=== PATIENT | male | born 1955 | race African-American/Black ===

== ENCOUNTER → 2020-04-20 | Day surgery (SDC) | payer BC, OTHER ==
[2020-04-18 09:38] VITALS: BMI 32.1
[~2020-04-20] MED LIST: LACTATED RINGERS 1,000 ML IV SCH; LIDOCAINE 1% INJ 10MG/ML (20 ML MDV) ONE; PROPOFOL 10 MG/ML 20 ML VIAL IV ONE
[2020-04-20 08:22] VITALS: TEMP 97.7
--- NOTE | 2020-04-20 08:45 | P.GSHP ---
History of Present Illness H&P Date: 04/20/20 CHIEF COMPLAINT: Colon screen HISTORY OF PRESENT ILLNESS: The patient is a 64-year-old male who presents for colon screen. Lower endoscopy was offered for further evaluation and management. PAST MEDICAL HISTORY: Please see list. PAST SURGICAL HISTORY: Please see list. MEDICATIONS: Please see list. ALLERGIES: Please see list. SOCIAL HISTORY: No illicit drug use FAMILY HISTORY: No reports of Crohn disease or ulcerative colitis. REVIEW OF ORGAN SYSTEMS: CONSTITUTIONAL: No reports of fevers or chills. PHYSICAL EXAM: VITAL SIGNS: Stable GENERAL: Well-developed pleasant in no acute distress. HEENT: No scleral icterus. Extraocular movements grossly intact. Moist buccal mucosa. NECK: Supple without lymphadenopathy. CHEST: Unlabored respirations. Equal bilateral excursions. CARDIOVASCULAR: Regular rate and rhythm. Distal 2+ pulses. ABDOMEN: Soft, nontender, nondistended. MUSCULOSKELETAL: No clubbing, cyanosis, or edema. ASSESSMENT: 1. Colon screen. PLAN: 1. Recommend proceeding with a lower endoscopy Past Medical History Past Medical History: Hypertension Additional Past Medical History / Comment(s): intentional wt loss approx 50lbs- off cholesterol medication and stated Dr Vazquez possibly taking HTN RX off soon,hx polyps History of Any Multi-Drug Resistant Organisms: None Reported Additional Past Surgical History / Comment(s): colonscopy Past Anesthesia/Blood Transfusion Reactions: No Reported Reaction Smoking Status: Former smoker - Past Family History Mother Family Medical History: Cancer Medications and Allergies Home Medications Medication Instructions Recorded Confirmed Type Fish Oil/Dha/Epa [Fish Oil 1,200 1 each PO DAILY 04/18/20 04/20/20 History mg Fish Oil] Tamsulosin HCl [Flomax] 0.4 mg PO HS 04/18/20 04/20/20 History Trandolapril/Verapamil HCl [Tarka 1 each PO QAM 04/18/20 04/20/20 History ER 2-240 mg Tablet] Allergies Allergy/AdvReac Type Severity Reaction Status Date / Time No Known Allergies Allergy Verified 04/20/20 08:11 Surgical - Exam Vital Signs Temp Pulse Resp BP Pulse Ox 97.7 F 83 17 140/73 98 04/20/20 08:21 04/20/20 08:21 04/20/20 08:21 04/20/20 08:21 04/20/20 08:21
--- NOTE | 2020-04-20 09:38 | P.PCN ---
Date of Procedure: 04/20/20 Description of Procedure: PREOPERATIVE DIAGNOSIS: Personal history of colon polyps High-risk colon screening POSTOPERATIVE DIAGNOSIS: Personal history of colon polyps High-risk colon screening OPERATION: Colonoscopy to the ascending colon/cecum SURGEON: Lainey Karimi MD. ANESTHESIA: MAC. INDICATIONS: The patient is a 64-year-old male who presents with personal history of high risk colon polyps. Last colonoscopy 2 years, 2018. Benefits and risks were described and informed consent was obtained. DESCRIPTION OF PROCEDURE: The patient had undergone Gatorade, MiraLAX and Dulcolax prep. He had been brought into the operating room and laid in the left lateral decubitus position. After adequate intravenous sedation, the rectum was examined with 2% lidocaine jelly. No external hemorrhoids were encountered. The rectal tone was within normal limits. No lesions were palpated in the rectal vault. The prostate fossa was unremarkable. An Olympus colonoscope was advanced to a highly redundant colon to the ascending colon with brief capture of the cecum. The prep was good. No large mouth diverticulosis was found. No large colonic polyps were found. No evidence of focal colitis was found. Retroflexion of the scope demonstrated grade 1 internal hemorrhoids without active bleeding or infl ammation. The colon was desufflated. The patient had tolerated the procedure well. Withdrawal time was over 6 minutes. FINDINGS: Aronchick preparation quality scale 2 (1-5) Internal hemorrhoids, grade 1 No external prolapsed hemorrhoids. No arteriovenous malformations. No adenomatous polyps. No focal colitis. RECOMMENDATIONS: Lower endoscopy in 5 years, 2024 Plan - Discharge Summary Discharge Rx Participant: No New Discharge Prescriptions: Continue Trandolapril/Verapamil HCl [Tarka ER 2-240 mg Tablet] 1 each PO QAM Tamsulosin HCl [Flomax] 0.4 mg PO HS Fish Oil/Dha/Epa [Fish Oil 1,200 mg Fish Oil] 1 each PO DAILY Discharge Medication List Fish Oil/Dha/Epa [Fish Oil 1,200 mg Fish Oil] 1 each PO DAILY 04/18/20 [History] Tamsulosin HCl [Flomax] 0.4 mg PO HS 04/18/20 [History] Trandolapril/Verapamil HCl [Tarka ER 2-240 mg Tablet] 1 each PO QAM 04/18/20 [History] Follow up Appointment(s)/Referral(s): Lainey Karimi MD [STAFF PHYSICIAN] - As Needed Patient Instructions/Handouts: Colonoscopy (DC), *Surgery [facility] - (Anesthesia) Endoscopy Discharge Instructions Activity/Diet/Wound Care/Special Instructions: Repeat colonoscopy in 5 years, 2024 Discharge Disposition: HOME SELF-CARE
[2020-04-20 09:48] VITALS: BP 103/67; PULSE 68; RESP 16
== END | disposition home or self-care (01) ==
LOC: ORWHC2ENDO 08:00
PROVIDERS: ATTEND Surgery Plastic and Reconstructive Surgery
DX: Z12.11 Encounter for screening for malignant neoplasm of colon (principal); K64.0 First degree hemorrhoids; I10 Essential (primary) hypertension; N40.0 Benign prostatic hyperplasia without lower urinary tract symptoms; Z86.010 Personal history of colon polyps; Z87.891 Personal history of nicotine dependence; Z80.9 Family history of malignant neoplasm, unspecified; Z79.899 Other long term (current) drug therapy
CPT/HCPCS: G0105; J2001; J2704; 45378

== ENCOUNTER → 2021-07-04 | Outpatient (CLI) | payer BC, MEDICARE | END | disposition home or self-care (01) | LOC: LABPAT 11:59 | PROVIDERS: ATTEND Urology | DX: Z01.812 Encounter for preprocedural laboratory examination (principal); C61 Malignant neoplasm of prostate | CPT/HCPCS: 80048; 84153; 85025; 86850; 86900; 86901 ==

== ENCOUNTER 2021-07-12 10:06 | Day surgery (SDC) | payer BC, MEDICARE ==
[2021-07-04 13:07] LABS: Basophils % (A) 1 %; Eosinophils # (A) 0.1 k/uL (0-0.7); Eosinophils % (A) 2 %; HCT 44.7 % (39.0-53.0); Lymphocytes # (A) 1.8 k/uL (1.0-4.8); Lymphocytes % (A) 32 %; MCH 29.6 pg (25.0-35.0); MCHC 31.5 g/dL (31.0-37.0); Mean Platelet Volume 7.5; Monocytes # (A) 0.3 k/uL (0-1.0); Monocytes % (A) 5 %; Neutrophils # (A) 3.4 k/uL (1.3-7.7); Neutrophils % (A) 60 %; Platelet Count 289 k/uL (150-450); RBC 4.75 m/uL (4.30-5.90); RDW 13.5 % (11.5-15.5); WBC 5.7 k/uL (3.8-10.6)
[2021-07-04 13:21] LABS: African American GFR (CKD) >90 (>60 ml/min/1.73 sqM); Anion Gap 7 mmol/L; Blood Urea Nitrogen 16 mg/dL (9-20); Calcium 9.4 mg/dL (8.4-10.2); Carbon Dioxide 24 mmol/L (22-30); Chloride 106 mmol/L (98-107); Glucose 108 mg/dL (74-99); Non-African American GFR(CKD) >90 (>60 ml/min/1.73 sqM); Sodium 137 mmol/L (137-145)
[2021-07-10 12:03] VITALS: BMI 33.5
--- NOTE | 2021-07-11 06:59 | P.GSHP ---
History of Present Illness H&P Date: 07/11/21 Chief Complaint: Prostate cancer the patient is a 65-year-old -[place] male with a history of BPH. His PSA level benedicto to 5.0 in December 2020. In March, he underwent a prostate ultrasound with biopsies. The prostate volume was 66.5 mL. 1 of 12 biopsies showed Priscilla 7 (3+4) adenocarcinoma in the right mid gland. Alternative treatment options were reviewed in detail with the patient and his . These include active surveillance, robotic-assisted laparoscopic prostatectomy (RALP), and IMRT. In view of his obstructive voiding symptoms and the fact that he emp ties his bladder incompletely, he has elected to undergo a nerve sparing RALP. - Constitutional Constitutional: Denies chills, Denies fever - Cardiovascular Cardiovascular: Reports high blood pressure - Genitourinary (Male) Genitourinary: Reports urinary frequency Past Medical History Past Medical History: Cancer, Hypertension Additional Past Medical History / Comment(s): colon polyps, prostate cancer. History of Any Multi-Drug Resistant Organisms: None Reported Additional Past Surgical History / Comment(s): colonscopy, ganglion cyst Past Anesthesia/Blood Transfusion Reactions: No Reported Reaction Past Psychological History: No Psychological Hx Reported Smoking Status: Former smoker Past Alcohol Use History: None Reported Additional Past Alcohol Use History / Comment(s): quit smoking 1994,smoked approx 15 yrs <1ppd Past Drug Use History: None Reported - Past Family History Mother Family Medical History: Cancer Additional Family Medical History / Comment(s): unknown type of cancer Medications and Allergies Home Medications Medication Instructions Recorded Confirmed Type Fish Oil/Dha/Epa [Fish Oil 1,200 1 each PO DAILY 04/18/20 07/10/21 History mg Fish Oil] Tamsulosin HCl [Flomax] 0.8 mg PO HS 04/18/20 07/10/21 History Trandolapril/Verapamil HCl [Tarka 1 each PO QAM 04/18/20 07/10/21 History ER 2-240 mg Tablet] Sildenafil (Unknown Dose) 1 tab PO DIRECTED 07/10/21 History Vitamin D3 (Unknown Dose) 1 cap PO DAILY 07/10/21 History Allergies Allergy/AdvReac Type Severity Reaction Status Date / Time No Known Allergies Allergy Verified 07/10/21 11:26 Surgical - Exam - General well developed, well nourished, no distress - Neck no masses, trachea midline - Respiratory normal respiratory effort, clear to auscultation - Cardiovascular Rhythm: regular Abnormal Heart Sounds: no systolic murmur, no diastolic murmur, no rub, no S3 Gallop, no S4 Gallop, no click, no other - Abdomen Abdomen: soft, non tender, no guarding, no rigid, no rebound - Genitourinary normal penis with no external lesions, testicles non-tender - Rectum Rectum: normal sphincter tone, no masses, other (prostate enlargement, focal firmness right apex) - Psychiatric oriented to time, oriented to person, oriented to place, speech is normal, memory intact Results - Labs 07/04/21 12:47 07/04/21 12:47 Assessment and Plan (1) Malignant neoplasm of prostate Status: Acute Code(s): C61 - MALIGNANT NEOPLASM OF PROSTATE SNOMED Code(s): 540873407 Plan: robotic-assisted laparoscopic prostatectomy (RALP). The procedure has been reviewed in great detail with the patient and his . The anticipated perioperative course has been reviewed. Potential risks have been explained, which include anesthesia, bleeding, infection, vascular injury, bowel injury, urinary leak, and vesical neck contracture. They understand the possibility of erectile dysfunction despite preservation of the neurovascular bundles. They are aware of the likelihood of urinary incontinence postoperatively, and the fact that it may fail to resolve. The possible need for adjuvant therapy has also been discussed.
[~2021-07-12 10:06] MED LIST changes: +HEPARIN SODIUM,PORCINE/PF 5,000 UNIT/0.5 ML SYRINGE SQ PRN; -LACTATED RINGERS 1,000 ML IV SCH; +LIDOCAINE 1% (10MG/ML) FOR IV START INTRADERMA PRN; -LIDOCAINE 1% INJ 10MG/ML (20 ML MDV) ONE; -PROPOFOL 10 MG/ML 20 ML VIAL IV ONE
[2021-07-12] MEDS: LACTATED RINGERS 1,000 ML IV SCH (11:09)
[2021-07-12] MEDS ORDERED: LACTATED RINGERS 1,000 ML IV ONE ×2 (11:09→16:24)
[2021-07-12] MEDS ORDERED: ONDANSETRON 4 MG/2 ML VIAL ONE (11:11)
[2021-07-12] MEDS ORDERED: DEXAMETHASONE SOD PHOSPHATE 4 MG/ML 1 ML VIAL IVP ONE (11:20)
[2021-07-12] MEDS ORDERED: ONDANSETRON 4 MG/2 ML VIAL IVP ONE (11:20)
[2021-07-12] MEDS ORDERED: MIDAZOLAM 2 MG/2 ML VIAL IVP ONE (11:56)
[2021-07-12] MEDS ORDERED: ROPIVACAINE 5 MG/ML 30 ML VIAL ONE (12:11)
[2021-07-12] MEDS ORDERED: LIDOCAINE 1% INJ 10MG/ML (20 ML MDV) ONE (12:11)
[2021-07-12] MEDS ORDERED: SODIUM CHLORIDE 0.9% (PF) 10 ML VIAL ONE (12:11)
[2021-07-12] MEDS ORDERED: HYDROmorphone (PF) 1 MG/ML ONE (12:11)
[2021-07-12] MEDS ORDERED: NEOSTIGMINE 1 MG/ML 10 ML VIAL ONE (12:11)
[2021-07-12] MEDS ORDERED: MIDAZOLAM 2 MG/2 ML VIAL ONE (12:11)
[2021-07-12] MEDS ORDERED: SUCCINYLCHOLINE CHLORIDE 100 MG/5 ML SYR IV ONE (12:11)
[2021-07-12] MEDS ORDERED: ROCURONIUM 10 MG/ML (5 ML VIAL) IV ONE (12:11)
[2021-07-12] MEDS ORDERED: PROPOFOL 10 MG/ML 20 ML VIAL IV ONE (12:11)
[2021-07-12] MEDS ORDERED: fentaNYL (PF) 50 MCG/ML 2 ML AMP ONE (12:11)
[2021-07-12] MEDS ORDERED: DEXAMETHASONE SOD PHOSPHATE 4 MG/ML 1 ML VIAL ONE (12:11)
[2021-07-12] MEDS ORDERED: GLYCOPYRROLATE 0.2 MG/ML 2 ML VIAL ONE (12:11)
[2021-07-12] MEDS ORDERED: BUPIVACAINE (PF) 0.25% 30 ML VIAL SQ ONE ×2 (12:50)
[2021-07-12] MEDS ORDERED: MAG HYDROX/AL HYDROX/SIMETH 30 ML CUP PO PRN (16:41)
[2021-07-12] MEDS ORDERED: KETOROLAC 15 MG/ML 1 ML VIAL IVP PRN (16:41)
[2021-07-12] MEDS ORDERED: ONDANSETRON 4 MG/2 ML VIAL IVP PRN (16:41)
[2021-07-12] MEDS ORDERED: HYDROmorphone 1 MG/ML 1 ML SYRINGE IVP PRN (16:41)
--- NOTE | 2021-07-12 16:41 | P.OP ---
Date of Procedure: 07/12/21 Preoperative Diagnosis: Adenocarcinoma of the prostate Postoperative Diagnosis: Same Procedure(s) Performed: Robotic-assisted laparoscopic prostatectomy (RALP) Anesthesia: STEVE Surgeon: Param Schaeffer Estimated Blood Loss (ml): 150 IV fluids (ml): 900 Pathology: other (Prostate, seminal vesicles, preprostatic fat) Condition: stable Disposition: PACU Indications for Procedure: The patient is a 65-year-old -[place] male with a history of BPH. His PSA level benedicto to 5.0 in December 2020. In March, he underwent a prostate ultrasound with biopsies. The prostate volume was 66.5 mL. 1 of 12 biopsies showed Priscilla 7 (3+4) adenocarcinoma in the right mid gland. Alternative treatment options were reviewed in detail with the patient and his . These include active surveillance, robotic-assisted laparoscopic prostatectomy (RALP), and IMRT. In view of his obstructive voiding symptoms and the fact that he empties his bladder incompletely, he has elected to undergo a nerve-sparing RALP. Operative Findings: No evidence of extraprostatic disease. Description of Procedure: The patient was taken in the operating room and placed in the dorsal lithotomy position, with his legs supported in Aamir stirrups. He was carefully positioned on a beanbag for stability. The abdomen and external genitalia were prepped and draped sterilely. A Priest catheter was inserted. The Veress needle was passed through the anterior abdominal wall immediately cephalad to the umbilicus, and insufflation was performed to a pressure of 20 mm Hg. Once insufflation was performed, the Veress needle was removed and a supraumbilical incision was made, through which an 8 mm camera port was placed. Under camera guidance, 3 8 mm robotic ports were placed, 2 on the left and one on the right. A 12 mm port was placed on the right lateral side for use as an child welfare assistant port. A 5 mm port was placed to the right of the camera port for suction. The patient was placed in Trendelenburg position, and docking was then performed to the da Yariel system utilizing a 4-arm approach. The abdomen was examined. The peritoneum was incised lateral to the medial umbilical ligaments bilaterally, exposing the pubis. The peritoneum was then incised across the midline, allowing the bladder flap to be taken down. The endopelvic fascia was opened bilaterally, and muscular attachments from the urogenital diaphragm were swept away from the prostate. The vesical neck was incised transversely, down to the lumen. The Priest catheter was brought out through the anterior vesical neck incision and was used for traction. The posterior aspect of the vesical neck was incised, and there appeared to be a prostatic median lobe noted at this time. Dissection was continued posteriorly, dissecting the vesical neck off of the prostate, down to the anterior layer of Denonvilliers fascia. The anterior layer of the Denonvilliers fascia was incised, exposing the vas deferens. Each were isolated and divided. Next, each of the seminal vesicles were dissected away from adjacent tissues, and vascular attachments were cauterized and divided. The posterior leaf of Denonvilliers fascia was incised transversely, allowing entry into the plane between the prostate and rectum. With lateral spreading, this plane was developed down to the apex. This exposed the lateral vascular pedicles bilaterally. These were clipped and divided in an antegrade fashion, down to the apex, immediately adjacent to the prostate to preserve the neurovascular bundles bilaterally. The use of electrocautery was avoided to prevent thermal damage to the nerves. The remaining apical attachments were swept away from the prostate. The dorsal venous complex was incised, as well as periurethral tissue. At this point, only the urethra remained intact. This was transected immediately distal to the prostatic apex using cold scissors. The specimen was placed within a specimen bag. The dorsal venous complex was sutured using a V-Loc suture in a running fashion. The suture was passed through the periosteum of the pubis periurethral support. A second V-Loc suture was then used to place the Dwaine stitch, incorporating the rhabdosphincter and the edge of Denonvilliers fascia. This allowed the bladder to be taken down to the urethra, leaving the vesical neck immediately adjacent to the urethra. The vesicourethral anastomosis was then performed using a V-Loc suture in a running fashion. After completing the anastomosis, an 18-Grenadian Priest catheter was placed and approximately 150 mL of 0.9 normal saline were instilled into the bladder. No extravasation of irrigant from the vesicourethral anastomosis was noted. A small amount of oozing was noted from the vascular pedicles, so Surgicel was placed bilaterally. Tisseel was sprayed into the pelvis over the vascular pedicles, dorsal vein, and vesicourethral anastomosis. The patient was returned to the supine position. Undocking was performed, and the specimen bag sutures were passed through the camera port. After removing all the ports and allowing all of the CO2 to be released from the peritoneal cavity, the camera port incision was enlarged to allow removal of the surgical specimen. The fascia of this incision was then closed using 0 PDS suture in a running fashion. Each of the skin incisions were then closed using 4-0 Monocryl suture in a subcuticular fashion. Marcaine was injected at each of the incision sites. Dermabond was applied to each incision. The Priest catheter was connected to gravity drainage. All sponge and needle counts were correct. The patient tolerated the procedure well was taken to the recovery room in stable condition.
[2021-07-12] MEDS: HYDROmorphone 0.5 MG/0.5 ML SYRINGE IVP PRN ×2 (16:54→17:08)
[2021-07-12] MEDS: DEXTROSE 5%-0.45% NACL 1,000 ML IV SCH (18:10)
--- NOTE | 2021-07-12 18:45 | P.ANPRN ---
Procedure Note - Anesthesia - Nerve Block Performed Bilateral Erector Spinae Single Time Out Performed: Yes Date of Procedure: 07/12/21 Procedure Start Time: 11:56 Procedure Stop Time: 12:03 Location of Patient: PreOp Indication: Acute Post-Operative Pain, Requested by Surgeon Sedation Type: Sedate with meaningful contact maintained Preparation: Sterile Prep Position: Prone Needle Types: Pajunk Needle Gauge: 21 Ultrasound used to visualize needle placement: Yes Ultrasound used to observe medication spread: Yes Blood Aspirated: No Pain Paresthesia on Injection Noted: No Resistance on Injection: Normal Image Stored and Saved: Yes Events: Uneventful and Well Tolerated (ropi .5% 15cc plus ns 15cc plus dexamethasone 4mg given bilaterally at L1)
[2021-07-12] MEDS: HEPARIN SODIUM,PORCINE/PF 5,000 UNIT/0.5 ML SYRINGE SQ SCH (20:56)
[2021-07-13] MEDS: LACTATED RINGERS 1,000 ML IV SCH (00:57)
[2021-07-13 02:47] VITALS: RESP 16
[2021-07-13] MEDS: DEXTROSE 5%-0.45% NACL 1,000 ML IV SCH ×3 (02:48→15:35)
[2021-07-13] MEDS: ACETAMINOPHEN TAB 325 MG TAB PO PRN ×2 (03:15→16:00)
[2021-07-13] MEDS: HEPARIN SODIUM,PORCINE/PF 5,000 UNIT/0.5 ML SYRINGE SQ SCH (08:41)
[2021-07-13] MEDS ORDERED: VERAPAMIL SR 240 MG TABLET.ER PO SCH (09:00)
[2021-07-13] MEDS ORDERED: lisinopriL 20 MG TAB PO SCH (09:00)
--- NOTE | 2021-07-13 13:58 | P.DS ---
Providers Expected date of discharge: 07/13/21 Attending physician: Param Schaeffer Primary care physician: Logan Vazquez - Discharge Diagnosis(es) (1) Malignant neoplasm of prostate Current Visit: Yes Status: Acute Hospital Course: On the day of admission, the patient underwent an uncomplicated robotic-assisted laparoscopic prostatectomy (RALP). The perioperative course was unremarkable. The patient remained afebrile stable vital signs. On the first postoperative day, the patient was quite comfortable. He tolerated diet without nausea. The abdomen was soft and nondistended. The incisions were clean and dry. The Priest catheter was draining clear yellow urine. Procedures: RALP on 07/12/2021 Patient Condition at Discharge: Good Plan - Discharge Summary Discharge Rx Participant: Yes New Discharge Prescriptions: New Ciprofloxacin HCl [Cipro] 250 mg PO Q12HR #6 tablet Ketorolac [Toradol] 10 mg PO Q6HR PRN #10 tab PRN Reason: Pain No Action Trandolapril/Verapamil HCl [Tarka ER 2-240 mg Tablet] 1 each PO QAM Tamsulosin HCl [Flomax] 0.8 mg PO HS Fish Oil/Dha/Epa [Fish Oil 1,200 mg Fish Oil] 1 each PO DAILY Vitamin D3 (Unknown Dose) 1 cap PO DAILY Sildenafil (Unknown Dose) 1 tab PO DIRECTED Discharge Medication List Fish Oil/Dha/Epa [Fish Oil 1,200 mg Fish Oil] 1 each PO DAILY 04/18/20 [History] Tamsulosin HCl [Flomax] 0.8 mg PO HS 04/18/20 [History] Trandolapril/Verapamil HCl [Tarka ER 2-240 mg Tablet] 1 each PO QAM 04/18/20 [History] Sildenafil (Unknown Dose) 1 tab PO DIRECTED 07/10/21 [History] Vitamin D3 (Unknown Dose) 1 cap PO DAILY 07/10/21 [History] Ciprofloxacin HCl [Cipro] 250 mg PO Q12HR #6 tablet 07/13/21 [Rx] Ketorolac [Toradol] 10 mg PO Q6HR PRN #10 tab 07/13/21 [Rx] Follow up Appointment(s)/Referral(s): Param Schaeffer MD [STAFF PHYSICIAN] - 07/24/21 Activity/Diet/Wound Care/Special Instructions: Discharge home with Priest catheter. Instruct patient to use overnight drainage bag as well as urinary leg bag. Okay to shower. Diet as tolerated. No lifting, driving, or strenuous activity. Reassure patient that abdominal wall ecchymosis and penoscrotal swelling are normal. Instruct patient to begin taking antibiotics one day prior to Priest catheter removal. Discontinue tamsulosin. Discharge Disposition: HOME SELF-CARE
[2021-07-13 14:30] VITALS: BP 133/83; PULSE 77; TEMP 99.4
== END 2021-07-13 16:31 | disposition home or self-care (01) ==
LOC: OR 10:06 → 4SSUR 16:37 → OR 07-13 16:31
PROVIDERS: ATTEND Urology
DX: C61 Malignant neoplasm of prostate (principal); I10 Essential (primary) hypertension; Z86.010 Personal history of colon polyps; Z87.891 Personal history of nicotine dependence; Z98.890 Other specified postprocedural states; Z97.2 Presence of dental prosthetic device (complete) (partial); Z80.9 Family history of malignant neoplasm, unspecified; Z79.899 Other long term (current) drug therapy
CPT/HCPCS: 64999; 86900; 86901; 84153; 80048; 85025; 86850; 87635; 55866; C1762; J2250; J1100; J2710; J0690; J2405; J2001; J3010; J1170 ×2; J2795; J1885; J0330; J2704; J1644 ×2

== ENCOUNTER → 2021-08-10 | Outpatient (CLI) | payer BC, MEDICARE | END | disposition home or self-care (01) | LOC: LABWHC1 09:28 | PROVIDERS: ATTEND Urology | DX: C61 Malignant neoplasm of prostate (principal) | CPT/HCPCS: 36415; 84153 ==

== ENCOUNTER → 2021-11-14 | Outpatient (CLI) | payer MEDICARE | END | disposition home or self-care (01) | LOC: LABWHC1 08:34 | PROVIDERS: ATTEND Urology | DX: C61 Malignant neoplasm of prostate (principal) | CPT/HCPCS: 36415; 84153 ==

== ENCOUNTER → 2022-03-08 | Outpatient (CLI) | payer MEDICARE | END | disposition home or self-care (01) | LOC: LABWHC1 12:02 | PROVIDERS: ATTEND Urology | DX: C61 Malignant neoplasm of prostate (principal) | CPT/HCPCS: 36415; 84153 ==

== ENCOUNTER → 2022-07-17 | Outpatient (CLI) | payer MEDICARE | END | disposition home or self-care (01) | LOC: LABWHC1 07:37 | PROVIDERS: ATTEND Urology | DX: C61 Malignant neoplasm of prostate (principal) | CPT/HCPCS: 36415; 84153 ==

== ENCOUNTER → 2023-01-24 | Outpatient (CLI) | payer MEDICARE | END | disposition home or self-care (01) | LOC: LABWHC1 08:27 | PROVIDERS: ATTEND Urology | DX: C61 Malignant neoplasm of prostate (principal) | CPT/HCPCS: 36415; 84153 ==

== ENCOUNTER → 2023-07-30 | Outpatient (CLI) | payer MEDICARE | END | disposition home or self-care (01) | LOC: LABWHC1 12:40 | PROVIDERS: ATTEND Urology | DX: C61 Malignant neoplasm of prostate (principal) | CPT/HCPCS: 36415; 84153 ==

== ENCOUNTER → 2024-08-18 | Outpatient (CLI) | payer MEDICARE | END | disposition home or self-care (01) | LOC: LABWHC1 11:53 | PROVIDERS: ATTEND Urology | DX: C61 Malignant neoplasm of prostate (principal) | CPT/HCPCS: 36415; 84153 ==

== ENCOUNTER → 2024-10-06 | Outpatient (CLI) | payer MEDICARE ==
[2024-10-06 19:27] LABS: Basophils # (A) 0.07 X 10*3/uL (0.00-0.10); Basophils % (A) 0.9 %; Eosinophils # (A) 0.17 X 10*3/uL (0.04-0.35); Eosinophils % (A) 2.1 %; HCT 44.6 % (39.6-50.0); HGB 14.2 g/dL (13.0-17.0); Lymphocytes # (A) 2.94 X 10*3/uL (0.90-5.00); Lymphocytes % (A) 36.7 %; MCH 28.1 pg (27.0-32.0); MCHC 31.8 g/dL (32.0-37.0); MCV 88.1 FL (80.0-97.0); Mean Platelet Volume 9.1 FL (9.5-12.2); Monocytes # (A) 0.57 X 10*3/uL (0.20-1.00); Monocytes % (A) 7.1 %; NRBC Per 100 WBC 0.03 X 10*3/uL (0.00-0.01); Neutrophils # (A) 4.24 X 10*3/uL (1.80-7.70); Neutrophils % (A) 52.8 %; Platelet Count 309 X 10*3/uL (140-440); RBC 5.06 X 10*6/uL (4.40-5.60); WBC 8.02 X 10*3/uL (4.50-10.00)
[2024-10-06 19:53] LABS: Calcium 9.5 mg/dL (8.7-10.3); Carbon Dioxide 22.4 mmol/L (21.6-31.8); Chloride 107 mmol/L (96-109); Glucose 90 mg/dL (70-110); Potassium 5.3 mmol/L (3.5-5.5); Sodium 140 mmol/L (135-145)
== END | disposition home or self-care (01) ==
LOC: LABWHC1 14:09
PROVIDERS: ATTEND Urology
DX: Z01.812 Encounter for preprocedural laboratory examination (principal); N52.31 Erectile dysfunction following radical prostatectomy
CPT/HCPCS: 36415; 80048; 85025

== ENCOUNTER 2024-11-05 06:04 | Day surgery (SDC) | payer MEDICARE ==
--- NOTE | 2024-11-01 20:08 | P.GSHP ---
History of Present Illness H&P Date: 11/01/24 Chief Complaint: Erectile dysfunction The patient is a 69-year-old black male who underwent robotic assisted laparoscopic prostatectomy in July 2021 for prostate cancer. His cancer was organ confined, and surgical margins were negative. His PSA level remains undetectable. He had mild erectile dysfunction preoperatively, and is currently unable to obtain a spontaneous erection. He has been treated unsuccessfully with intracavernosal injection therapy. Alternative treatment options have been reviewed in detail with the patient, who has elected to undergo insertion of an inflatable penile prosthesis. - Cardiovascular Cardiovascular: Reports high blood pressure - Genitourinary (Male) Genitourinary: Reports erectile dysfunction Past Medical History Past Medical History: Hypertension Additional Past Medical History / Comment(s): intentional wt loss approx 50lbs- off cholesterol medication and stated Dr Vazquez possibly taking HTN RX off soon,hx polyps History of Any Multi-Drug Resistant Organisms: None Reported Additional Past Surgical History / Comment(s): colonscopy Past Anesthesia/Blood Transfusion Reactions: No Reported Reaction Smoking Status: Former smoker Past Alcohol Use History: None Reported Additional Past Alcohol Use History / Comment(s): quit smoking 1994,smoked approx 15 yrs <1ppd Past Drug Use History: None Reported - Past Family History Mother Family Medical History: Cancer Medications and Allergies Home Medications Medication Instructions Recorded Confirmed Type Fish Oil/Dha/Epa [Fish Oil 1,200 1 each PO DAILY 04/18/20 07/12/21 History mg Fish Oil] Tamsulosin HCl [Flomax] 0.8 mg PO HS 04/18/20 07/12/21 History Trandolapril/Verapamil HCl [Tarka 1 each PO QAM 04/18/20 07/12/21 History ER 2-240 mg Tablet] Sildenafil (Unknown Dose) 1 tab PO DIRECTED 07/10/21 07/12/21 History Vitamin D3 (Unknown Dose) 1 cap PO DAILY 07/10/21 07/12/21 History Ciprofloxacin HCl [Cipro] 250 mg PO Q12HR #6 tablet 07/13/21 Rx Ketorolac [Toradol] 10 mg PO Q6HR PRN #10 tab 07/13/21 Rx Allergies Allergy/AdvReac Type Severity Reaction Status Date / Time No Known Allergies Allergy Verified 07/12/21 10:27 Surgical - Exam - General well developed, well nourished, no distress - Respiratory normal respiratory effort - Abdomen Abdomen: soft, non tender, no guarding, no rigid, no rebound - Genitourinary normal penis with no external lesions, testicles non-tender - Psychiatric oriented to time, oriented to person, oriented to place, speech is normal, memory intact Assessment and Plan (1) Erectile dysfunction following radical prostatectomy Status: Acute Code(s): N52.31 - ERECTILE DYSFUNCTION FOLLOWING RADICAL PROSTATECTOMY SNOMED Code(s): 346600848794177 Plan: The patient has elected to undergo insertion of an AMS 700 inflatable penile prosthesis. I have reviewed the procedure with him in detail. I discussed the prognosis and possible side-effects as well as the mechanics of the implant. I explained the possibility of a wound infection, particularly because of the presence of the foreign body in the penis. I discussed in detail the postope rative swelling and bruising. I explained that the implant does not give erectile qualities to the glans penis. The patient expressed an understanding with regard to the procedure, possible complications and outcome. Other risks include anesthesia, bleeding, erosion, and mechanical failure. He understands that infection and erosion would necessitate removal of the prosthesis.
[2024-11-02 14:23] VITALS: BMI 21.6
[~2024-11-05 06:04] MED LIST changes: -HEPARIN SODIUM,PORCINE/PF 5,000 UNIT/0.5 ML SYRINGE SQ PRN; +MIDAZOLAM 2 MG/2 ML VIAL IV PRN; +fentaNYL (PF) 50 MCG/ML 2 ML AMP IVP PRN
[2024-11-05] MEDS: IV FLUID CONTINUATION 1,000 ML IV ONE ×3 (06:56→11:45)
[2024-11-05] MEDS: DEXAMETHASONE SOD PHOSPHATE 4 MG/ML 1 ML VIAL IV ONE (06:57)
[2024-11-05] MEDS: LACTATED RINGERS 1,000 ML IV SCH (06:57)
[2024-11-05] MEDS: ONDANSETRON 4 MG/2 ML VIAL IVP ONE (06:57)
[2024-11-05] MEDS: GENTAMICIN 100 MG in SODIUM CHLORIDE 0.9% 100 ML IVPB PRN (07:07)
[2024-11-05 07:13] LABS: Glucose,Whole Blood 105 mg/dL (70-110)
[2024-11-05] MEDS ORDERED: NEOSTIGMINE 1 MG/ML 10 ML VIAL ONE (07:30)
[2024-11-05] MEDS ORDERED: fentaNYL (PF) 50 MCG/ML 2 ML AMP ONE (07:30)
[2024-11-05] MEDS: SODIUM CHLORIDE 0.9% 100 ML with GENTAMICIN 100 MG IV ONE (07:30)
[2024-11-05] MEDS ORDERED: ROCURONIUM 10 MG/ML (5 ML VIAL) IV ONE (07:30)
[2024-11-05] MEDS ORDERED: LIDOCAINE 1% INJ 10MG/ML (20 ML MDV) ONE (07:30)
[2024-11-05] MEDS ORDERED: PROPOFOL 10 MG/ML 20 ML VIAL IV ONE (07:30)
[2024-11-05] MEDS ORDERED: HYDROmorphone (PF) 1 MG/ML ONE (07:30)
[2024-11-05] MEDS ORDERED: GLYCOPYRROLATE 0.2 MG/ML 2 ML VIAL ONE (07:30)
[2024-11-05] MEDS ORDERED: MIDAZOLAM 2 MG/2 ML VIAL ONE (07:30)
[2024-11-05] MEDS: VANCOMYCIN 1,000 MG in SODIUM CHLORIDE 0.9% 250 ML IVPB PRN (07:50)
[2024-11-05] MEDS: GENTAMICIN 80 MG in SODIUM CHLORIDE 0.9% 500 ML 500 ML IRRIGATION ONE (07:59)
[2024-11-05 09:33] VITALS: TEMP 97.7
[2024-11-05] MEDS: HYDROmorphone 0.5 MG/0.5 ML SYRINGE IVP PRN (09:37)
[2024-11-05] MEDS: KETOROLAC 15 MG/ML 1 ML VIAL IVP STA (10:45)
[2024-11-05 11:11] VITALS: RESP 18
[2024-11-05 12:09] VITALS: BP 120/68; PULSE 60
--- NOTE | 2024-11-05 16:31 | P.OP ---
Date of Procedure: 11/05/24 Preoperative Diagnosis: Male erectile dysfunction Postoperative Diagnosis: Same Procedure(s) Performed: Insertion of AMS 700 CX inflatable penile prosthesis Anesthesia: STEVE Surgeon: Param Schaeffer Litigation Services Manager #1: Torin Cooney Estimated Blood Loss (ml): 30 IV fluids (ml): 550 Pathology: none sent Condition: stable Disposition: PACU Indications for Procedure: The patient is a 69-year-old black male who underwent robotic assisted la paroscopic prostatectomy in July 2021 for prostate cancer. His cancer was organ confined, and surgical margins were negative. His PSA level remains undetectable. He had mild erectile dysfunction preoperatively, and is currently unable to obtain a spontaneous erection. He has been treated unsuccessfully with intracavernosal injection therapy. Alternative treatment options have been reviewed in detail with the patient, who has elected to undergo insertion of an inflatable penile prosthesis. Operative Findings: 18 cm cylinders placed with 2 cm rear-tip extenders. Description of Procedure: The patient was taken to the operating room and placed in the supine position. The lower abdomen and external genitalia were prepped and draped sterilely. The scalpel was used to make an infrapubic midline skin incision. The Bovie electrocautery was used to incise the subcutaneous tissues and the linea alba in the midline. The linea alba was somewhat attenuated on the left side. Dissection was carried down to the corporal bodies bilaterally. Once they were exposed, 3-0 PDS stay sutures were placed through the tunica albuginea bilatera lly. The scalpel was then used to make the corporotomies bilaterally, making longitudinal incisions within each corporal body measuring approximately 2.5 cm in length. Metzenbaum scissors were used to establish a plane within the corporal bodies proximally and distally. The corporal bodies were then dilated successfully using Hegar dilators up to 13 mm. Each corporal body was then measured to be 20 cm in length. Both the fluid reservoir and the cylinders were prepped in the standard fashion to remove any air from them. Blunt dissection was utilized to develop the prevesical space, allowing the 65 cc spherical fluid reservoir to be placed within that space and the tubing brought out through a separate stab incision to the right of the midline incision. The reservoir was then filled with 65 cc of normal saline. The linea alba was then closed using 0 PDS suture in a running fashion. Next, 2 cm rear- tip extenders were connected to 18 cm cylinders, which were then placed within their respective corporal body using the Dann needle and Uche insertion tool in the standard fashion. The cylinders were then inflated, and the cylinders noted to be nicely expanded without buckling. The cylinders were then deflated, and the corporotomies were both closed using 3-0 PDS suture in a running fashion. Next, blunt dissection was utilized to create a pouch within the right anterior hemiscrotum. The pump was placed within this pouch, and it was easy to palpate both the pump and the release button. The tubing from the pump was then secured to the tubing from the reservoir using the snap connector in the standard fashion. It should be noted that the prosthetic components were periodically irrigated with antibiotic solution throughout the procedure. The subcutaneous tissues were reapproximated over the prosthetic tubing using 3- 0 chromic suture in a running fashion. The skin was closed using les. A sterile gauze dressing was applied over the incision. All sponge and needle counts were correct. A 12 Yor[place] Priest catheter was placed. The return was clear. The patient tolerated the procedure well and was taken to the recovery in stable condition.
== END 2024-11-05 12:57 | disposition home or self-care (01) ==
LOC: OR 06:04
PROVIDERS: ATTEND Urology
DX: N52.31 Erectile dysfunction following radical prostatectomy (principal); I10 Essential (primary) hypertension; Z79.899 Other long term (current) drug therapy; Z87.891 Personal history of nicotine dependence; Z85.46 Personal history of malignant neoplasm of prostate
CPT/HCPCS: 54405; J3370; J1580 ×2; J1100; J2405; J1885; J1171